=== PATIENT | female | born 1965 | race Caucasian/White ===

== ENCOUNTER 2018-12-30 08:16 | Day surgery (SDC) | payer OTHER ==
[~2018-12-30] VITALS: Ht 154.9 cm; Wt 84.6 kg
[~2018-12-30 08:16] MED LIST: atorvastatin PO; omeprazole PO
[2018-12-30 09:23] VITALS: Ht 154.9 cm; Wt 84.6 kg
[2018-12-30 09:32] VITALS: BP 132/62; PULSE 61; RESP 20
[2018-12-30] MEDS ORDERED: PROPOFOL 40 ML ONE (09:51)
[2018-12-30] MEDS ORDERED: FENTAnyl 50 MCG/ML VIAL ONE (09:51)
[2018-12-30] MEDS ORDERED: LIDOCAINE 100 MG SYRINGE ONE (09:51)
[2018-12-30 10:51] VITALS: BP 138/71; RESP 18
== END 2018-12-30 11:04 | disposition home or self-care (01) ==
LOC: GIL 08:16
PROVIDERS: ATTEND Internal Medicine Gastroenterology
DX: Z12.11 Encounter for screening for malignant neoplasm of colon (principal); K64.8 Other hemorrhoids; K21.9 Gastro-esophageal reflux disease without esophagitis; K29.30 Chronic superficial gastritis without bleeding
CPT/HCPCS: 43239; 45378; 84703; 88305; 88312; J2001; J3010; Z7610